=== PATIENT | female | born 1930 | race Caucasian/White ===

== ENCOUNTER 2019-07-27 10:59 | Emergency (ER) | payer MEDICARE, OTHER ==
[2019-07-27] MEDS ORDERED: Benzonatate 100 MG Cap PO ONE (12:20)
[2019-07-27] MEDS ORDERED: Levofloxacin 500 MG Tab PO ONE (12:21)
--- NOTE | 2019-07-27 12:24 | EDM.PDOC ---
Scribed by Kiley Mcdaniel 07/27/19 1141 for Joseph Ma MD ED HPI GENERAL MEDICAL PROBLEM - General Chief Complaint: Respiratory Problem Stated Complaint: BAD COUGH Time Seen by Provider: 07/27/19 11:32 Source of Information: Reports: Patient, RN, RN Notes Reviewed History Limitations: Reports: No Limitations - History of Present Illness INITIAL COMMENTS - FREE TEXT/NARRATIVE: Patient presents to ER with cough for 1 week, and worse today with increased sputum production. Patient was up all night coughing. Pt states she cant take anything over the counter due to A-Fib. Denies fevers, sore throat, N/V, or chest pain. Admits to congestion. Pt states everyone in her family has had colds last week. Onset: Gradual Duration: Getting Worse Location: Reports: Chest Severity: Moderate Improves with: Reports: None Worsens with: Reports: None Associated Symptoms: Reports: No Other Symptoms - Related Data Allergies Allergy/AdvReac Type Severity Reaction Status Date / Time aspirin Allergy Nausea and Verified 07/27/19 11:28 Vomiting morphine Allergy Nausea and Verified 07/27/19 11:28 Vomiting Home Meds: Home Meds Acetaminophen 1,000 mg PO Q6H PRN 07/27/19 [History] Apixaban [Eliquis] 5 mg PO BID 07/27/19 [History] Cartilage/Collagen/Bor/Hyalur [Joint Health Tablet] 3 each PO BID 07/27/19 [ History] Dofetilide 125 mcg PO BID 07/27/19 [History] Levothyroxine [Synthroid] 100 mcg PO ACBREAKFAST 07/27/19 [History] Lisinopril [Zestril] 20 mg PO BID 07/27/19 [History] Metoprolol Tartrate 200 mg PO BID 07/27/19 [History] Past Medical History Cardiovascular History: Reports: Afib Social & Family History - Family History Family Medical History: Noncontributory - Living Situation & Occupation Living situation: Reports: with Family Occupation: Retired ED ROS GENERAL - Review of Systems Review Of Systems: Comprehensive ROS is negative, except as noted in HPI. ED EXAM, GENERAL - Physical Exam Exam: See Below Exam Limited By: No Limitations General Appearance: Alert, WD/WN, No Apparent Distress Eye Exam: Bilateral Eye: Normal Inspection Ears: Normal External Exam, Normal Canal, Hearing Grossly Normal, Normal TMs Nose: Nasal Drainage (mild congestion with clear mucus) Throat/Mouth: Normal Inspection, Normal Lips, Normal Voice, No Airway Compromise Head: Atraumatic, Normocephalic Neck: Normal Inspection, Supple, Non-Tender, Full Range of Motion Respiratory/Chest: No Respiratory Distress, No Accessory Muscle Use, Chest Non- Tender, Decreased Breath Sounds, Crackles. No: Rales, Wheezing, Stridor Cardiovascular: No Edema, Irregularly Irregular Back Exam: Normal Inspection Extremities: Normal Inspection, Normal Range of Motion, Non-Tender, Normal Capillary Refill, No Pedal Edema Neurological: Alert, Oriented, CN II-XII Intact, Normal Cognition, Normal Gait, No Motor/Sensory Deficits Psychiatric: Normal Affect, Normal Mood Skin Exam: Warm, Dry, Intact, Normal Color, No Rash Course - Vital Signs Last Recorded V/S: Last Vital Signs Temp 97.4 F 07/27/19 11:29 Pulse 76 07/27/19 11:29 Resp 18 07/27/19 11:29 BP 172/90 H 07/27/19 11:29 Pulse Ox 96 07/27/19 11:29 - Orders/Labs/Meds Orders: Active Orders 24 hr Category Date Time Status Benzonatate [Tessalon Perles] Med 07/27/19 12:20 Once 200 mg PO ONETIME ONE levoFLOXacin [Levaquin] Med 07/27/19 12:21 Once 500 mg PO ONETIME ONE Labs: Laboratory Tests 07/27/19 Range/Units 12:05 WBC 4.7 L (5.0-10.0) 10^3/uL RBC 3.27 L (4.2-5.4) 10^6/uL Hgb 11.2 L (12.0-16.0) g/dL Hct 32.8 L (37.0-47.0) % MCV 100.3 H (80-100) fL MCH 34.3 H (27.0-34.0) pg MCHC 34.1 (33.0-35.0) g/dL Plt Count 143 L (150-450) 10^3/uL Neut % (Auto) 76.4 H (42.2-75.2) % Lymph % (Auto) 10.5 L (20.5-50.1) % [place] % (Auto) 11.4 H (2-8) % Eos % (Auto) 1.5 (1.0-3.0) % Baso % (Auto) 0.2 (0.0-1.0) % - Radiology Interpretation Free Text/Narrative:: CXR: bronchitis vs early infiltrate best seen on lateral view, see Rad. report. Departure - Departure Time of Disposition: 12:23 Disposition: Home, Self-Care 01 Condition: Good Clinical Impression: Pneumonia Qualifiers: Pneumonia type: due to unspecified organism Laterality: right Lung location: lower lobe of lung Qualified Code(s): J18.9 - Pneumonia, unspecified organism - Discharge Information *PRESCRIPTION DRUG MONITORING PROGRAM REVIEWED*: No *COPY OF PRESCRIPTION DRUG MONITORING REPORT IN PATIENT HARMEET: No Instructions: Community-Acquired Pneumonia, Adult, [id number] Forms: ED Department Discharge Additional Instructions: Rx: Levaquin 500mg Rx: Tessalon Perles 200mg Follow up in clinic in 1 week for recheck if needed. Return to ER if any breathing difficulties develop. Sepsis Event Note - Focused Exam Vital Signs: Vital Signs Temp Pulse Resp BP Pulse Ox 07/27/19 11:29 97.4 F 76 18 172/90 H 96 Date Exam was Performed: 07/27/19 Time Exam was Performed: 12:21 - My Orders Last 24 Hours: My Active Orders 07/27/19 12:20 Benzonatate [Tessalon Perles] 200 mg PO ONETIME ONE 07/27/19 12:21 levoFLOXacin [Levaquin] 500 mg PO ONETIME ONE - Assessment/Plan Last 24 Hours: My Active Orders 07/27/19 12:20 Benzonatate [Tessalon Perles] 200 mg PO ONETIME ONE 07/27/19 12:21 levoFLOXacin [Levaquin] 500 mg PO ONETIME ONE I have read and agree with the documentation that has been completed regarding this visit. By signing this record, I attest that the documentation was completed in my physical presence and is an accurate record of the encounter.
== END 2019-07-27 12:42 | disposition home or self-care (01) ==
LOC: DL.ED 10:59
DX: J18.9 Pneumonia, unspecified organism (principal); Z88.6 Allergy status to analgesic agent; Z88.5 Allergy status to narcotic agent; Z79.899 Other long term (current) drug therapy
CPT/HCPCS: 36415; 71046; 85025; 99283; A9270